=== PATIENT | female | born 1985 | race African-American/Black ===

== ENCOUNTER 2017-01-19 11:50 | Emergency (ER) | payer MEDICAID ==
[~2017-01-19] VITALS: Ht 167.6 cm; Wt 100.0 kg
[~2017-01-19 11:50] MED LIST: ACET-2708; ALBU05; IBUP-1008
[2017-01-19] MEDS ORDERED: TRAMADOL 50MG TABLET PO ONE (14:30)
[2017-01-19 15:43] VITALS: BP 134/82
== END 2017-01-19 15:39 | disposition home or self-care (01) ==
LOC: ER 15:11
DX: Z76.0 Encounter for issue of repeat prescription (principal); N80.9 Endometriosis, unspecified; J45.909 Unspecified asthma, uncomplicated
CPT/HCPCS: 99283

== ENCOUNTER 2017-01-29 12:47 | Emergency (ER) | payer MEDICAID ==
[~2017-01-29] VITALS: Ht 167.6 cm; Wt 100.0 kg
[2017-01-29] MEDS ORDERED: KETOROLAC 60MG/2ML VIAL IM ONE (14:30)
[2017-01-29 14:35] LABS: DIFFERENTIAL COMMENT 0; HEMATOCRIT. 36.1 % (36.0-48.0); HEMOGLOBIN. 11.6 g/dL (12.0-16.0); MEAN CORPUSCULAR HGB CONC 32.1 g/dL (31.0-37.0); MEAN CORPUSCULAR VOLUME 74.8 fL (81.0-99.0); PLATELET 331 x1000/uL (130-400); RED BLOOD CELL COUNT 4.83 mill/uL (4.2-5.4); RED CELL DISTRIBUTION WIDTH 15.9 % (11.6-14.6); WHITE BLOOD COUNT 4.7 x1000/uL (4.5-11.0)
[2017-01-29 14:42] LABS: ANION GAP 9; CALCIUM 8.9 mg/dL (8.5-10.1); CARBON DIOXIDE 30 mEq/L (21-32); CHLORIDE 104 mEq/L (98-107); INDEX HEMOLYSI 1 (1-3); INDEX ICTERIC 1 (1-4); INDEX LIPEMIC 1 (1-3); UREA NITROGEN BLOOD 9 mg/dL (7-21)
[2017-01-29 14:44] LABS: eGFR > 60 mL/min (>60)
[2017-01-29] MEDS ORDERED: KETOROLAC 30MG/ML VIAL IV ONE (14:45)
[2017-01-29 14:47] LABS: HCG SCREEN NEGATIVE
[2017-01-29 15:28] LABS: PLATELET ESTIMATE NORMAL
[2017-01-29 15:30] LABS: CLARITY URINE CLEAR (CLEAR); COLOR URINE YELLOW (YELLOW); GLUCOSE URINE NEGATIVE (NEGATIVE); KETONES URINE NEGATIVE (NEGATIVE); LEUKOCYTE ESTERASE URINE NEGATIVE (NEGATIVE); NITRITE URINE NEGATIVE (NEGATIVE); OCCULT BLOOD URINE NEGATIVE (NEGATIVE); PH URINE 7.5 (4.5-8.0); PROTEIN URINE NEGATIVE (NEGATIVE); SPECIFIC GRAVITY URINE 1.019 (1.005-1.030)
[2017-01-29] MEDS ORDERED: MORPHINE SULFATE 4 MG/ML CPJ (NOT FOR IM USE) IV ONE (17:45)
[2017-01-29] MEDS ORDERED: ONDANSETRON HCL 4MG/2ML VIAL IV ONE (17:45)
[2017-01-29 18:42] VITALS: BP 110/81
== END 2017-01-29 18:46 | disposition home or self-care (01) ==
LOC: ER 14:25
DX: N83.201 Unspecified ovarian cyst, right side (principal); D25.9 Leiomyoma of uterus, unspecified; N80.9 Endometriosis, unspecified; Z90.49 Acquired absence of other specified parts of digestive tract; Z88.6 Allergy status to analgesic agent
CPT/HCPCS: 36415; 76830; 76856; 80048; 81003; 84703; 85007; 85027; 96374; 96375; 99285; J1885; J2270; J2405; Z7610

== ENCOUNTER 2017-02-19 13:27 | Emergency (ER) | payer MEDICAID ==
[~2017-02-19] VITALS: Ht 167.6 cm; Wt 100.0 kg
[2017-02-19 13:38] VITALS: BP 131/88
== END 2017-02-19 17:38 | disposition home or self-care (01) ==
LOC: ER 16:46
DX: N80.9 Endometriosis, unspecified (principal); J45.909 Unspecified asthma, uncomplicated; Z76.0 Encounter for issue of repeat prescription; Z90.49 Acquired absence of other specified parts of digestive tract; Z88.6 Allergy status to analgesic agent; Z88.5 Allergy status to narcotic agent; Z88.8 Allergy status to other drugs, medicaments and biological substances
CPT/HCPCS: 99283; Z7610

== ENCOUNTER 2017-02-23 07:33 | Emergency (ER) | payer MEDICAID ==
[~2017-02-23] VITALS: Ht 167.6 cm; Wt 100.0 kg
[2017-02-23 07:43] VITALS: BP 114/80
== END 2017-02-23 10:03 | disposition home or self-care (01) ==
LOC: ER 08:14
DX: R10.2 Pelvic and perineal pain (principal); E66.9 Obesity, unspecified; J45.909 Unspecified asthma, uncomplicated; N80.9 Endometriosis, unspecified; Z88.6 Allergy status to analgesic agent; Z88.5 Allergy status to narcotic agent; Z68.35 Body mass index [BMI] 35.0-35.9, adult; Z90.49 Acquired absence of other specified parts of digestive tract
CPT/HCPCS: 99283

== ENCOUNTER 2017-03-11 08:32 | Emergency (ER) | payer MEDICAID ==
[~2017-03-11] VITALS: Ht 167.6 cm; Wt 100.0 kg
[2017-03-11 08:46] VITALS: BP 127/79
== END 2017-03-11 09:29 | disposition home or self-care (01) ==
LOC: ER 09:09
DX: N80.9 Endometriosis, unspecified (principal); J45.909 Unspecified asthma, uncomplicated; Z90.49 Acquired absence of other specified parts of digestive tract
CPT/HCPCS: 99281

== ENCOUNTER 2017-05-07 10:03 | Emergency (ER) | payer MEDICAID ==
[~2017-05-07] VITALS: Ht 157.5 cm; Wt 100.0 kg
[2017-05-07 13:01] VITALS: BP 124/82
== END 2017-05-07 13:02 | disposition home or self-care (01) ==
LOC: ER 12:39
DX: N80.9 Endometriosis, unspecified (principal); J45.909 Unspecified asthma, uncomplicated; Z76.0 Encounter for issue of repeat prescription; Z88.5 Allergy status to narcotic agent; Z88.6 Allergy status to analgesic agent
CPT/HCPCS: 99283